=== PATIENT | female | born 1935 | race Caucasian/White ===

== ENCOUNTER 2019-09-17 16:43 | Observation (INO) | payer MEDICARE, BC, SELFPAY ==
--- NOTE | 2019-09-17 17:01 | ED.GENADULT ---
HPI - General Adult General Chief complaint: Unspecified Stated complaint: Doctor Check Time Seen by Provider: 09/17/19 17:01 Source: patient and family () Mode of arrival: ambulatory Limitations: dementia History of Present Illness HPI narrative: An 84 y/o female presents to the ED for placement to a respite care facility due to her PMHx of dementia. Pt is here with her who was seen for a separate illness. Pt's is her primary caregiver and he is unable to care for her at this time because he is being admitted to the hospital. Pt lives at home with her . Pt and her have 2 sons a 1 daughter, however their eldest son committed suicide. Pt's other son lives in [place] and her daughter lives in [place]. Pt thinks she is at [facility] in [place]. Per , pt uses eye drops for glaucoma but is unsure what other medications she takes. Pt has not taken any of her medications today. Pt states she has been eating and drinking okay. Pt had a banana and Pepsi in the ED. Pt is able to ambulate with her walker. She denies any current pain in the ED bed. A complete HPI is limited due to the pt's PMHx of dementia. Related Data Home Medications Medication Instructions Recorded Confirmed atorvastatin 09/17/19 donepezil mg 09/17/19 fluoxetine [Prozac] 80 mg PO DAILY 09/17/19 latanoprost 09/17/19 omeprazole 09/17/19 Allergies Allergy/AdvReac Type Severity Reaction Status Date / Time No Known Allergies Allergy Verified 09/17/19 17:01 Review of Systems Review of Systems: Narrative: A complete ROS is limited due to the pt's PMHx of dementia. Constitutional: Comments: Denies: any current pain in the ED bed PMFSH Past Medical History Medical History Arthritis Dementia Depression GERD (gastroesophageal reflux disease) HLD (hyperlipidemia) Osteoporosis Short-term memory loss Sinus problem Stress fracture Ulcer UTI (urinary tract infection) Surgical History Surgical History H/O bilateral cataract extraction H/O dilation and curettage H/O Spinal surgery H/O: hysterectomy History of bladder suspension procedure History of cholecystectomy History of tonsillectomy History of total knee arthroplasty bilateral Social History Social History Smoking status: Former smoker Comments No PCP on file. Exam Narrative: Exam Narrative: GENERAL: Well-appearing, well-nourished, and in no acute distress. HEAD: Normocephalic, atraumatic EYES: PERRLA and EOMI, conjunctiva clear without discharge EARS: TM's clear bilaterally without erythema or dullness NOSE: Nares clear, no rhinorrhea or epistaxis THROAT:Mucous membranes moist, Oropharynx normal without erythema, exudate, peritonsillar swelling or fluctuance NECK: Supple, without lymphadenopathy or mass RESPIRATORY: No respiratory distress, Airway patent, Respirations non-labored, Clear to auscultation without rales, rhonchi or wheeze HEART: Regular rate and rhythm. No murmur heard. Normal peripheral pulses. ABDOMEN: Soft, nontender, nondistended, normal active bowel sounds. No masses. No rebound or guarding, No organomegaly. EXTREMITIES: No edema, normal strength with full range of motion. SKIN: Warm, dry, normal color without rash NEURO: Alert and oriented to self. CN 2-12 grossly intact. No focal deficits. Dementia, able to ambulate using her personal walker with steady gait PSYCH: Normal mood and affect. Course Course Emergency Course: This patient came to ER with who is a patient. Her had to be admitted to hospital and patient has dementia . She is unable to go home on her own due to her dementia. Care coordination arranged for patient to get REspite care bed at [facility] but she was unable to go tonight due to [facility] did not have a sitter available
--- NOTE | 2019-09-17 17:01 | PCCCNOTE ---
Arrangements made to go to respite care via EMS this evening
[2019-09-17 17:35] LABS: Basophils Percent Auto 0.3 % (0.2-1.2); Eosinophils Absolute Auto 0.1 K/mm3 (0-0.3); Eosinophils Percent Auto 0.9 % (0-4.4); Hematocrit 46.3 % (37.0-47.0); Hemoglobin 14.5 g/dL (12.0-15.0); Immature Granulocyte Absolute 0.03 K/mm3 (0.00-0.031); Immature Granulocyte Percent A 0.5 % (0-0.5); Lymphocytes Absolute Auto 1.08 K/mm3 (0.9-3.2); Lymphocytes Percent Auto 16.3 % (18.3-44.2); Mean Corpuscular HGB Conc 31.3 g/dl (32-36); Mean Corpuscular Hemoglobin 31.2 pg (26-34); Mean Corpuscular Volume 99.6 fl (80-100); Mean Platelet Volume 10.6 fl (7.4-10.4); Monocytes Absolute Auto 0.4 K/mm3 (0.1-0.6); Monocytes Percent Auto 6.6 % (2.6-8.5); Neutrophils Percent Auto 75.4 % (45.5-73.1); Platelet Count Result 184 k/mm3 (150-375); Red Blood Count 4.65 M/mm3 (4.2-5.4); Red Cell Distribution Width 13.3 % (11.5-14.5); White Blood Count 6.6 K/mm3 (4.5-10.0)
[2019-09-17 17:39] VITALS: BP 105/87; PULSE 89; RESP 18; TEMP 37.5; O2SAT 100
[2019-09-17 17:46] LABS: Alanine Aminotransferase 25 U/L (4-35); Albumin Level 4.6 g/dL (3.5-5.1); Alkaline Phosphatase 98 U/L (38-126); Aspartate Amino Transferase 35 U/L (14-36); Bilirubin,Total 0.8 mg/dL (0.2-1.3); Blood Urea Nitrogen 28 mg/dL (7-17); Calcium 9.6 mg/dL (8.4-10.2); Carbon Dioxide 23 mmol/L (22-30); Chloride 100 mmol/L (98-107); Estimated Glomerular Filt Rate 53; Glucose 246 mg/dL (65-105); Potassium 4.3 mmol/L (3.4-5.0); Sodium 141 mmol/L (137-145)
--- NOTE | 2019-09-17 18:09 | PC.NURSE ---
Attempted to have patient provided urine sample but she voided in her diaper.
--- NOTE | 2019-09-17 18:24 | PC.NURSE ---
Per , Patient weighs 144 lbs and is 5'4 tall.
--- NOTE | 2019-09-17 18:33 | PC.NURSE ---
Joe is with patient at this time.
--- NOTE | 2019-09-17 19:28 | PC.NURSE ---
Faxed info to [facility] at [phone], followed up with phone call at [phone]. [facility] will look over information and call us back.
--- NOTE | 2019-09-17 22:03 | PM.IMHP ---
H&P: HPI History of Present Illness Chief complaint: Dementia Narrative: This is a demented 84 year old female who presented to the hospital today with her as he was being seen in the ER. The patient's takes care of her and they live alone. Her children live out of state. While the pateint's was being seen in the ER, the patient has needed a sitter as she has been wandering around in the ER. At one point she came into her husbands room and stated that she didn't know her . We have been asked to admit the patient to the hospital overnight as her is being admitted and the patient is not safe to go home alone due to her dementia. The patient denies any symptoms tonight and denies having and recent urinary symptoms. Her tells me that she is on medications but he can't remember the names of them. No other complaints. Review of Systems Review of Systems: All systems reviewed & are unremarkable except as noted in HPI and below PMFSH Past Medical History Medical History Arthritis Dementia Depression GERD (gastroesophageal reflux disease) HLD (hyperlipidemia) Osteoporosis Short-term memory loss Sinus problem Stress fracture Ulcer UTI (urinary tract infection) Surgical History Surgical History H/O bilateral cataract extraction H/O dilation and curettage H/O Spinal surgery H/O: hysterectomy History of bladder suspension procedure History of cholecystectomy History of tonsillectomy History of total knee arthroplasty bilateral Social History Social History Smoking status: Former smoker Alcohol intake: never Substance use: never Gender identity (if verbalized by the patient): Female Spiritual care concerns: No Agree to blood products: Yes Meds Home Medications and Allergies Home Medications Medication Instructions Recorded Confirmed Type atorvastatin 40 mg PO DAILY 09/17/19 09/17/19 History donepezil 10 mg PO DAILY 09/17/19 09/17/19 History fluoxetine [Prozac] 80 mg PO DAILY 09/17/19 09/17/19 History latanoprost 1 drp OPHTHALMIC (EYE) DAILY 09/17/19 09/17/19 History omeprazole 20 mg PO QID 09/17/19 09/17/19 History Allergies Allergy/AdvReac Type Severity Reaction Status Date / Time No Known Allergies Allergy Verified 09/17/19 17:01 Vital Signs Vital Signs - 24 hr 09/17/19 17:39 Temperature 37.5 C Pulse Rate 89 Respiratory Rate 18 Blood Pressure 105/87 Pulse Oximetry 100 Exam Const: General: cooperative, no acute distress, alert and awake Nutritional Appearance: well nourished Orientation/consciousness: oriented to person and oriented to place HENMT: Head: normal to inspection General nose exam: Normal external nose present Face and sinus: normal facial exam Mouth: Yes Normal oral and palatal mucosa present and Yes oropharynx normal Eyes: Pupils: Equal, round and reactive pupils present EOM: EOMs intact bilaterally Neck: Neck: supple and no JVD Thyroid: thyroid normal Lymphatic: lymphadenopathy not noted Resp: Effort & Inspection: normal respiratory effort Auscultation: clear to auscultation bilaterally Cardio: Rate: regular rate Rhythm: regular rhythm Heart sounds: no murmurs GI: Inspection: normal to inspection Auscultation: normal bowel sounds Skin: General skin exam: normal color and no rashes or lesions noted Neuro: General: oriented to person and oriented to place Cranial nerves: Yes CN's II-XII intact bilaterally and Yes Equal, round and reactive pupils present Speech: normal speech Motor exam (neuro): 5/5 motor strength present throughout Sensory Exam: normal sensation Extrem: General: normal to inspection and no edema Psych: Mental Status: mental status grossly normal Affect: normal affect H&P: Results Labs Labs: Short CBC 09/17
[2019-09-17 22:04] VITALS: BP 130/54; PULSE 87; RESP 16; TEMP 36.9; O2SAT 98
[2019-09-17 22:25] VITALS: BP 149/84; PULSE 79; RESP 18; TEMP 36.3; O2SAT 100; BMI 21.4
[2019-09-18 06:00] VITALS: BP 127/61; PULSE 71; RESP 18; TEMP 36.5; O2SAT 98
[2019-09-18 06:30] LABS: Basophils Percent Auto 0.6 % (0.2-1.2); Eosinophils Absolute Auto 0.1 K/mm3 (0-0.3); Eosinophils Percent Auto 2.2 % (0-4.4); Hematocrit 41.3 % (37.0-47.0); Hemoglobin 13.2 g/dL (12.0-15.0); Immature Granulocyte Absolute 0.04 K/mm3 (0.00-0.031); Immature Granulocyte Percent A 0.7 % (0-0.5); Lymphocytes Absolute Auto 1.38 K/mm3 (0.9-3.2); Lymphocytes Percent Auto 25.6 % (18.3-44.2); Mean Corpuscular Hemoglobin 31.3 pg (26-34); Mean Corpuscular Volume 97.9 fl (80-100); Mean Platelet Volume 10.9 fl (7.4-10.4); Monocytes Absolute Auto 0.6 K/mm3 (0.1-0.6); Monocytes Percent Auto 10.6 % (2.6-8.5); Neutrophils Absolute Auto 3.3 K/mm3 (1.3-6.7); Neutrophils Percent Auto 60.3 % (45.5-73.1); Platelet Count Result 162 k/mm3 (150-375); Red Blood Count 4.22 M/mm3 (4.2-5.4); Red Cell Distribution Width 13.2 % (11.5-14.5); White Blood Count 5.4 K/mm3 (4.5-10.0)
[2019-09-18 06:40] LABS: Blood Urea Nitrogen 22 mg/dL (7-17); Calcium 9.3 mg/dL (8.4-10.2); Carbon Dioxide 23 mmol/L (22-30); Chloride 103 mmol/L (98-107); Estimated CRCL calculation 29 ml/min; Estimated Glomerular Filt Rate 60; Glucose 87 mg/dL (65-105); Potassium 4.1 mmol/L (3.4-5.0); Sodium 138 mmol/L (137-145)
[2019-09-18 06:53] LABS: Hemoglobin A1C 5.2 % (<5.7)
[2019-09-18 07:41] LABS: Glucose Point of Care 98 (65-105)
[2019-09-18 09:14] VITALS: BP 108/59; PULSE 95; RESP 18; O2SAT 100
[2019-09-18] MEDS: ATORVASTATIN 40 MG TABLET PO (11:02)
[2019-09-18] MEDS: DONEPEZIL HCL 10 MG TABLET PO (11:02)
[2019-09-18] MEDS: PANTOPRAZOLE 40 MG TABLET PO (11:04)
[2019-09-18] MEDS: FLUOXETINE HCL 20 MG CAP 80 MG PO (11:28)
[2019-09-18 14:00] VITALS: BP 105/85; PULSE 87; RESP 18; TEMP 36.6; O2SAT 100
[2019-09-18 14:16] LABS: Glucose Point of Care 115 (65-105)
--- NOTE | 2019-09-18 16:56 | PM.DS ---
DS: Diagnosis Admitting Diagnosis Admitting Diagnosis: Unspecified dementia without behavioral disturbance Discharge Diagnosis (1) Dementia: Qualifiers: Dementia behavioral disturbance: without behavioral disturbance Dementia type: unspecified type Qualified Code(s): F03.90 - Unspecified dementia without behavioral disturbance Code(s): F03.90 - Unspecified dementia without behavioral disturbance Status: Acute Assessment and Plan: Admitted for observation. No acute issues overnight Continue donepezil. Patient's son to take patient home after discharge. He has a sister who will also aid in her care. They are in the process of making long-term arrangements for a NH (2) Abnormal glucose: Code(s): R73.09 - Other abnormal glucose Status: Acute Assessment and Plan: A1c 5.7. Accuchecks, SSI Coverage. Hypoglycemic protocol during stay Follow up with PCP as outpatient (3) GERD (gastroesophageal reflux disease): Qualifiers: Esophagitis presence: esophagitis presence not specified Qualified Code(s): K21.9 - Gastro-esophageal reflux disease without esophagitis Code(s): K21.9 - Gastro-esophageal reflux disease without esophagitis Status: Chronic Assessment and Plan: Continue omperazole. (4) Depression: Qualifiers: Depression Type: other depression Qualified Code(s): F32.89 - Other specified depressive episodes Code(s): F32.9 - Major depressive disorder, single episode, unspecified Status: Chronic Assessment and Plan: Continue fluoxetine. (5) HLD (hyperlipidemia): Qualifiers: Hyperlipidemia type: unspecified Qualified Code(s): E78.5 - Hyperlipidemia, unspecified Code(s): E78.5 - Hyperlipidemia, unspecified Status: Chronic Assessment and Plan: Continue atorvastatin. DS: Summary Hospital Course Reason for hospitalization: Dementia; observation as admitted to hospital without another family member to care for patient while patient was admitted Hospital Course: Patient is a 84 yo F with history of dementia who presented to the hospital with her as he was being seen in the ER on 09/17. Patient is cared for by the as her children live out of state. Patient was noted to be confused and needing a sitter while in the ER while her was being cared for. It was deemed unsafe to have patient being discharge home alone; her son was contacted who drove from [place] to clam picker the patient. There was no other medical indication for admission other than baseline dementia. Please see H&P for further details. Presenting VS: BP 105/87, HR 89, RR 18, temp 99.5, sat 100% RA Presenting Pertinent labs: CBC, CMP unremarkable Micro: None Imaging: none ECG: none Patient was admitted to the hospitalist service for further observation while patient's son drove from [place] to care for patient after discharge. Patient's stay was uncomplicated and patient's son arrived to the hospital on afternoon of 09/18 to take patient home. Patient was hemodynamically stable and in okay condition for discharge. Son and Daughter, who was driving from out of state as well, were planning on making arrangements for further care as outpatient. Status at Discharge Overall status at discharge: patient is progressing back to baseline Time Spent with Patient Time attestation: Total time spent providing and/or coordinating discharge services: 35 minutes Time spent: Greater than 30 minutes Exam Narrative: Exam Narrative: Patient lying supine in bed at time of visit. Son is at beside visiting Const: General: cooperative, comfortable, no acute distress, alert and awake Nutritional Appearance: well nourished Orientation/
[2019-09-18 17:18] LABS: Glucose Point of Care 145 (65-105)
--- NOTE | 2019-09-18 18:30 | PC.NURSE ---
Patient discharged @1745. Patient had no IV access. Patient transported home via wheel chair and POV by the son of the patient.
== END 2019-09-18 17:45 | disposition home or self-care (01) ==
LOC: ANHED 21:13 → ANH3MEDSUR 21:18
PROVIDERS: Physician Assistant; Admitting Provider Family Medicine; Emergency Provider General Practice; Visit Provider Family Medicine
DX: F03.90 Unspecified dementia, unspecified severity, without behavioral disturbance, psychotic disturbance, mood disturbance, and anxiety (principal); Z74.2 Need for assistance at home and no other household member able to render care; R73.09 Other abnormal glucose; E78.5 Hyperlipidemia, unspecified; F32.9 Major depressive disorder, single episode, unspecified; K21.9 Gastro-esophageal reflux disease without esophagitis; M81.0 Age-related osteoporosis without current pathological fracture; M19.90 Unspecified osteoarthritis, unspecified site; Z87.891 Personal history of nicotine dependence; Z96.653 Presence of artificial knee joint, bilateral
CPT/HCPCS: 36415; 80048; 80053; 83036; 85025; 99285; A9270; G0378

== ENCOUNTER 2019-10-06 18:29 | Emergency (ER) | payer MEDICARE, BC, SELFPAY ==
--- NOTE | ~2019-10-06 | CT_ITS ---
EXAMINATION: CT brain wo con EXAM DATE: 10/06/2019 19:06 INDICATION: Fall, head injury. TECHNIQUE: Spiral CT of the head was performed without contrast. Axial, coronal and sagittal images were reviewed. The dose-length product (DLP) for this examination was 605.33 mGy-cm. The exposure w as tailored according to patient size, and iterative reconstruction (ASIR) was used as additional dos e reduction technique. Comparison is made to prior examination from 01/14/2019. FINDINGS: There is no acute intraparenchymal hemorrhage. No evidence of intraparenchymal brain mass lesion. No evidence of acute infarction. Please note that initial head CT has limited sensitivity f or small or acute infarctions. 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 There is moderate pe riventricular and subcortical hypodensity, nonspecific but probably related to small vessel ischemic disease. There is moderate prominence of the sulci and ventricles related to cerebral atrophy. Th ere is intracranial carotid arteriosclerosis. There are no extra-axial collections. There is no mas s effect or midline shift. Patient has had bilateral ocular lens surgery. Soft tissue is unremarkab le. The visualized sinuses and mastoid air cells are well aerated. 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 There is no significant interval change. IMPRESSION: 1. No acute intracranial findings. 2. Chronic age related findings. 3. 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 Reviewed, dictated and finalized at location A. RATIONS TAILOR
--- NOTE | ~2019-10-06 | CT_ITS ---
EXAMINATION: CT cervical spine [facility] EXAM DATE: 10/06/2019 19:06 INDICATION: Fall, head injury. TECHNIQUE: Spiral CT of the cervical spine was performed without contrast. Axial images were reviewe d. Coronal and sagittal reformatted images were also reviewed. The dose-length product (DLP) for thi s examination was 87.13 mGy-cm. The exposure was tailored according to patient size (auto mA exposur e control), and iterative reconstruction (ASIR) was used as additional dose reduction technique. Comp demetriceson is made to prior examination from 01/14/2019. FINDINGS: Multiple midcervical laminectomies. Advanced cervical disc disease. There is no evidence of acute cervical fracture. The odontoid process is intact. Pre-dens space is normal. Prevertebral s oft tissue is normal. There are no soft tissue abnormalities identified. There is no disc space wid ening or traumatic vertebral body subluxation suspected. Advanced cervical arthropathy. A detailed level by level evaluation of spondylosis can be added as addendum if requested. IMPRESSION: 1. No acute cervical fracture. 2. Cervical spondylosis. Reviewed, dictated and finalized at location A. AR SUPERVISOR
--- NOTE | 2019-10-06 18:29 | ED.FALL ---
HPI - Fall General Chief Complaint: Fall Stated Complaint: fall Time Seen by Provider: 10/06/19 18:30 Source: patient Mode of arrival: ambulatory Limitations: no limitations History of Present Illness HPI Narrative: A 82 y/o female pt presents to the ED, via EMS from her assisted living facility, with c/o witnessed ground level fall outside of her bedroom at her nursing facility prior to EMS arrival. EMS states that pt has a 1 inch laceration to the back of her head and is complaining of pain in the back of her neck and head. EMS reports that the pt was only down for a couple of minutes and had no LOC. They note that the pt was groggy and weak when the staff at the facility tried to get her off the floor, so they decided to call EMS. Pt states her pain is mild and notes feeling nauseous, and having a cough, but denies pain to her back, shoulders, chest or hips. She denies any recent illness. Pt has a PMHx of Dementia. Pt notes an allergy to Penicillin. A complete HPI is limited d/t pt having dementia. MD complaint: fall Onset (ago): minute(s) Fall from: standing Fall witnessed: yes, by living facility staff Place fall occurred: [facility] Loss of consciousness: none Prolonged down time: minute(s) Location of injury: head (1 inch laceration) Severity: mild Associated symptoms (after fall): neck pain, weakness and other (pain to the back of her head, nausea) Related Data Home Medications Medication Instructions Recorded Confirmed atorvastatin 40 mg PO DAILY 09/17/19 09/17/19 donepezil 10 mg PO DAILY 09/17/19 09/17/19 fluoxetine [Prozac] 80 mg PO DAILY 09/17/19 09/17/19 latanoprost 1 drp OPHTHALMIC (EYE) DAILY 09/17/19 09/17/19 omeprazole 20 mg PO QID 09/17/19 09/17/19 Allergies Allergy/AdvReac Type Severity Reaction Status Date / Time No Known Allergies Allergy Verified 09/17/19 17:01 Review of Systems Review of Systems: Narrative: A complete ROS is limited d/t pt having dementia. Constitutional: Constitutional: Reports weakness and Reports other (pain to back of head) Respiratory: Respiratory: Reports cough Gastrointestinal: Gastrointestinal: Reports nausea Musculoskeletal: Musculoskeletal: Denies back pain, Reports neck pain and Denies other (Pain; shoulder, chest, hips) Integumentary/Breasts: Skin/Breast: Reports other (1 inch laceration to back of head) [facility] Past Medical History Medical History Arthritis Dementia Depression GERD (gastroesophageal reflux disease) HLD (hyperlipidemia) Osteoporosis Short-term memory loss Sinus problem Stress fracture Ulcer UTI (urinary tract infection) Surgical History Surgical History H/O bilateral cataract extraction H/O dilation and curettage H/O Spinal surgery H/O: hysterectomy History of bladder suspension procedure History of cholecystectomy History of tonsillectomy History of total knee arthroplasty bilateral Social History Social History (Updated 10/06/19 @ 18:49 by Diego [employer]) Smoking status: Former smoker Alcohol intake: never Substance use: never Living arrangements: assisted living Gender identity (if verbalized by the patient): Female Spiritual care concerns: No Agree to blood products: Yes Exam Const: General: no acute distress Other: frail, elderly, A&Ox2 HENMT: Other: 1 cm posterior scalp laceration Eyes: Conjunctivae: conjunctivae normal Pupils: Equal, round and reactive pupils present EOM: EOMs intact bilaterally Neck: Other: collar in place Resp: Effort & Inspection: normal respiratory effort Auscultation: clear to auscultation bilaterally Cardio: Rate: regular rate Rhythm: regular rhythm GI: Other: NTND Skin: General skin exam: normal color Neuro: General: moves all extremities and no focal motor deficits Speech: normal speech Extrem: General: no edema Course Vital
[2019-10-06 18:39] VITALS: BP 121/68; PULSE 72; RESP 16; TEMP 36.4; O2SAT 99
[2019-10-06 18:42] VITALS: RESP 14; O2SAT 99
--- NOTE | 2019-10-06 20:49 | PC.NURSE ---
Called [facility] to transport patient. ETA [phone]
--- NOTE | 2019-10-06 21:40 | PC.NURSE ---
Called [facility] at [phone] to request transport. [facility] here at [phone]. Cancel [facility] at [phone].
[2019-10-06 21:55] VITALS: BP 120/76; PULSE 75; RESP 18; O2SAT 98
== END 2019-10-06 21:50 ==
PROVIDERS: Emergency Provider Emergency Medicine
DX: S01.01XA Laceration without foreign body of scalp, initial encounter (principal); S09.90XA Unspecified injury of head, initial encounter; M47.812 Spondylosis without myelopathy or radiculopathy, cervical region; M19.90 Unspecified osteoarthritis, unspecified site; F03.90 Unspecified dementia, unspecified severity, without behavioral disturbance, psychotic disturbance, mood disturbance, and anxiety; F32.9 Major depressive disorder, single episode, unspecified; K21.9 Gastro-esophageal reflux disease without esophagitis; W01.0XXA Fall on same level from slipping, tripping and stumbling without subsequent striking against object, initial encounter
CPT/HCPCS: 12001; 70450; 72125; 99284

== ENCOUNTER 2019-11-07 20:58 | Emergency (ER) | payer MEDICARE, BC, SELFPAY ==
--- NOTE | ~2019-11-07 | XR_ITS ---
EXAMINATION: XR chest 2V EXAM DATE: 11/07/2019 21:28 INDICATION: Generalized weakness, fall. Head injury. TECHNIQUE: Frontal and lateral projections of the chest obtained and reviewed. Comparison is made to prior examination from 01/14/2019 FINDINGS: There is right midlung zone granuloma. The lungs are otherwise clear. There are no pleural effusions. The cardiomediastinal silhouette is within normal limits. There is no pneumothorax susp ected. The bones are osteopenic. There are bony degenerative changes. There is aortic arterial scle rosis. There is colonic interposition. IMPRESSION: No acute cardiopulmonary findings. Reviewed, dictated and finalized at location G.
--- NOTE | ~2019-11-07 | CT_ITS ---
EXAMINATION: CT brain wo con, CT cervical spine wo con EXAM DATE: 11/07/2019 21:30 INDICATION: Fall, head injury. TECHNIQUE: Spiral CT of the head was performed without contrast. Axial, coronal and sagittal images were reviewed. Spiral CT of the cervical spine was performed without contrast. Axial images were rev iewed. Coronal and sagittal reformatted images were also reviewed. The dose-length product (DLP) fo r this examination was 605.33 (accession [id number]), 75.75 (accession [id number]) mGy-cm. T he exposure was tailored according to patient size, and iterative reconstruction (ASIR) was used as a dditional dose reduction technique. Comparison is made to prior examination from 10/06/2019. 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 There is no acute intraparenchymal hemorrhag e. No evidence of intraparenchymal brain mass lesion. No evidence of acute infarction. There is mil d to moderate periventricular and subcortical hypodensity, nonspecific but probably related to small vessel ischemic disease. There is moderate prominence of the sulci and ventricles related to cerebr al atrophy. There is intracranial carotid arteriosclerosis. There is no mass effect or midline sh ift. There is no obstructive hydrocephalus suspected. There are no extra-axial collections. There a re no acute calvarial fractures. The orbits are unremarkable. Soft tissue is unremarkable. The vis ualized sinuses and mastoid air cells are well aerated. CERVICAL CT: Congenitally incomplete posterior fusion of C1. There is no evidence of acute cervical f racture. The odontoid process is intact. Pre-dens space is normal. Prevertebral soft tissue is nor mal. There are no soft tissue abnormalities identified. There is no disc space widening or traumati c vertebral body subluxation suspected. There is advanced cervical spondylosis. There are laminectom y C3 C3-6. Some apical emphysema. A detailed level by level evaluation of spondylosis can be added as addendum if requested. There is no significant interval change. IMPRESSION: 1. No acute intracranial or cervical findings. 2. 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 3. Chronic intracranial age-related findings. 4. Advanced cervical spondylosis. Reviewed, dictated and finalized at location G. IMPRESSION: 1. No acute intracranial or cervical findings. 2. 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 3. Chronic intracranial age-related findings. 4. Advanced cervical spondylosis.
[2019-11-07 20:51] VITALS: BP 148/85; PULSE 75; TEMP 37.4; O2SAT 98
--- NOTE | 2019-11-07 20:54 | ED.FALL ---
HPI - Fall General Chief Complaint: Fall Stated Complaint: weakness/ fall hematoma to head Source: patient and RN notes reviewed Mode of arrival: EMS Limitations: other (poor historian) History of Present Illness HPI Narrative: An 84 y/o female pt presents to the ED, via EMS, from [facility], with c/o weakness x a few days and witnessed fall that occurred prior to arrival to the ED. Per ED RN at bedside, Nursing Facility staff and EMS witnessed the pt fall and denies pt having LOC, but reports pt hitting her head and a golf-size hematoma to the back of her head. Pt notes weakness x the last few days, but denies vision changes, CP, N/V/D, or ABD pain. No fever, chills or coughs. A complete HPI is limited d/t pt being a poor historian due to dementia. MD complaint: fall Onset (ago): minute(s) Fall witnessed: yes, by living facility staff Place fall occurred: [facility] Loss of consciousness: none Prolonged down time: no Context: other (weakness x a few days) Related Data Home Medications Medication Instructions Recorded Confirmed atorvastatin 40 mg PO DAILY 09/17/19 09/17/19 donepezil 10 mg PO DAILY 09/17/19 09/17/19 fluoxetine [Prozac] 80 mg PO DAILY 09/17/19 09/17/19 latanoprost 1 drp OPHTHALMIC (EYE) DAILY 09/17/19 09/17/19 omeprazole 20 mg PO QID 09/17/19 09/17/19 Allergies Allergy/AdvReac Type Severity Reaction Status Date / Time No Known Allergies Allergy Verified 09/17/19 17:01 Review of Systems Review of Systems: Narrative: A complete ROS is limited d/t to pt being a poor historian. Constitutional: Constitutional: Denies chills, Denies excessive sweating, Denies fever(s) and Reports weakness (x a few days) Eyes: Eyes: Denies change in vision, Denies eye discharge and Denies other (redness) ENT: Denies otalgia, Denies sore throat and Denies other (rhinorrhea, congestion) Cardiovascular: Cardiovascular: Denies chest pain, Denies pedal edema and Denies palpitations Respiratory: Respiratory: Denies cough and Denies dyspnea Gastrointestinal: Gastrointestinal: Denies abdominal pain, Denies diarrhea, Denies nausea and Denies vomiting Genitourinary: Genitourinary: Denies dysuria and Denies other (hematuria) Musculoskeletal: Musculoskeletal: Denies back pain, Denies myalgias and Denies arthralgias Neurologic: Denies numbness and Denies other (headaches, LOC) Psychiatric: Psychiatric: Denies anxiety and Denies depression [facility] Social History Social History (Updated 11/07/19 @ 22:21 by Diego Patel, [facility]) Smoking status: Former smoker Alcohol intake: never Substance use: never Living arrangements: [facility] Gender identity (if verbalized by the patient): Female Spiritual care concerns: No Agree to blood products: Yes Exam Narrative: Exam Narrative: GENERAL: Awake, alert, conversant, thin, frail HEAD: Normocephalic, small hematoma to left parietal lobe, no laceration or ecchymoses ENT: Nares patent. Mucous membranes dry NECK: Full ROM. No cervical midline tenderness. No stepoffs or deformities. CHEST: No respiratory distress, no tachypnea HEART: Regular rate ABDOMEN: Non-distended, non-tender EXTREMITIES: Normal ROM, No edema, no tenderness to bilateral hips or pelvis, pelvis is stable, no shortening or rotation to bilateral lower extremities. DP PUlses 2+. No deformity or injuries to knees or ankles. SKIN: warm, dry, no rash, abrasion to rt hand, bruising to rt forearm NEURO: No focal deficits, Alert and oriented x 2. Moving all extremities spontaneously. No facial droop. Course Course Emergency Course: Patient presented for evaluation of a ground-level fall. At the time of initial assessment, ABCs are intact and vital signs are stable. Patient is neurologically intact at baseline. No focal neuro deficits. She is quite thin and frail appearing, otherwise pt is pleasant, awake and alert. Pelvis is stable, no sign of hip injury based on exam. Pt with small he
--- NOTE | 2019-11-07 21:01 | ECG_ITS ---
Measurements Intervals [place] Rate: 67 P: 64 RI: 138 QRS: -10 QRSD: 81 T: 66 QT: 431 QTc: 457 Interpretive Statements SINUS RHYTHM BASELINE ARTIFACT- I, II, V4 NORMAL ECG Electronically Signed On 11-08-2019 7:13:19 CDT by Kyrie Diego D.O.
--- NOTE | 2019-11-07 21:22 | PC.NURSE ---
Patient in radiology at this time.
[2019-11-07] MEDS: SODIUM CHLORIDE 0.9% IV 500 ML 999 ML IV CONT (21:41)
[2019-11-07 21:49] LABS: Basophils Percent Auto 0.5 % (0.2-1.2); Eosinophils Percent Auto 0.3 % (0-4.4); Hematocrit 40.9 % (37.0-47.0); Hemoglobin 13.6 g/dL (12.0-15.0); Immature Granulocyte Absolute 0.02 K/mm3 (0.00-0.031); Immature Granulocyte Percent A 0.3 % (0-0.5); Immature Platelet Fraction Pct 4.7 % (0.9-11.2); Lymphocytes Percent Auto 12.7 % (18.3-44.2); Mean Corpuscular HGB Conc 33.3 g/dl (32-36); Mean Corpuscular Volume 90.3 fl (80-100); Mean Platelet Volume 11.1 fl (7.4-10.4); Monocytes Absolute Auto 0.5 K/mm3 (0.1-0.6); Monocytes Percent Auto 8.6 % (2.6-8.5); Neutrophils Absolute Auto 4.9 K/mm3 (1.3-6.7); Neutrophils Percent Auto 77.6 % (45.5-73.1); Platelet Count Result 134 k/mm3 (150-375); Red Blood Count 4.53 M/mm3 (4.2-5.4); Red Cell Distribution Width 12.8 % (11.5-14.5); White Blood Count 6.3 K/mm3 (4.5-10.0)
[2019-11-07 21:57] LABS: Partial Thromboplastin Time 23.4 SECONDS (22.3-36.8); Prothrombin Time 12.5 Seconds (11.1-14.7)
[2019-11-07 21:59] VITALS: BP 146/88; PULSE 64; RESP 21; O2SAT 97
[2019-11-07 22:05] LABS: Add Urine Microscopic? YES; Appearance Urine Cloudy (Clear); Bilirubin Urine Negative (Negative); Blood Urine Negative (Negative); Color Urine Yellow (Yellow); Glucose Urine UA Negative (Negative); Ketones Urine Negative (Negative); Leukocyte Esterase Ur 2+ LEU/UL (Negative); Mucus Urine Heavy /lpf; Nitrate Urine Negative (Negative); Protein Urine 2+ mg/dL (Negative); Specific Grav Ur 1.023 (1.001-1.035); Squamous Epithelial Cell Urine Many /hpf (Few); WBC Clumps Urine Present /HPF; WBC Urine >75 /hpf
[2019-11-07 22:06] LABS: Blood Urea Nitrogen 13 mg/dL (7-17); Calcium 9.4 mg/dL (8.4-10.2); Carbon Dioxide 26 mmol/L (22-30); Chloride 105 mmol/L (98-107); Estimated Glomerular Filt Rate 60; Glucose 110 mg/dL (65-105); Potassium 2.8 mmol/L (3.4-5.0); Sodium 138 mmol/L (137-145)
[2019-11-07] MEDS: CEPHALEXIN 500 MG CAPSULE PO (22:17)
[2019-11-07] MEDS: POTASSIUM CHLORIDE 20 MEQ PACKET (FOR LIQUID) 80 MEQ PO (22:17)
[2019-11-07 23:05] VITALS: BP 156/78; PULSE 72; RESP 21; O2SAT 97
[2019-11-07 23:15] VITALS: BP 156/78; PULSE 88; RESP 18; TEMP 37.3; O2SAT 97
--- NOTE | 2019-11-07 23:15 | PC.NURSE ---
Addendum entered by Bouchra Yancey 11/08/19 02:33: Called [facility] for status...approximately 45 minutes. They have had 2 ambulances at our door, that left due to 911 calls. Original Note: Called [facility] to transport back to facility....ETA 45 minutes.
--- NOTE | 2019-11-08 01:08 | PC.NURSE ---
Patient refusing repeat VS at this time. Patient resting on stretcher watching television awaiting EMS arrival to transport her back to the [place]. Call light within reach.
--- NOTE | 2019-11-08 02:37 | PC.NURSE ---
Patient continuously refusing repeat VS. Patient still waiting for EMS to arrive to transport her back to the [place]. Patient resting on the stretcher at this time. Call light within reach.
== END 2019-11-08 03:11 ==
PROVIDERS: Emergency Provider Emergency Medicine
DX: N39.0 Urinary tract infection, site not specified (principal); E87.6 Hypokalemia; S00.93XA Contusion of unspecified part of head, initial encounter; Z87.891 Personal history of nicotine dependence; M47.812 Spondylosis without myelopathy or radiculopathy, cervical region; W19.XXXA Unspecified fall, initial encounter
CPT/HCPCS: 36415; 51701; 70450; 71046; 72125; 80048; 81001; 85025; 85055; 85610; 85730; 87086; 87088; 93005; 99284; A9270; J7040

== ENCOUNTER 2019-11-10 17:15 | Emergency (ER) | payer MEDICARE, BC, SELFPAY ==
--- NOTE | ~2019-11-10 | XR_ITS ---
XR pelvis 1-2V 11/10/2019 18:26 Indication: Status post fall. Pelvic pain. Altered mental status. Procedure: AP view of the pelvis Comparison: No prior studies for comparison. Findings: Pelvic rings are intact. Moderate lower lumbar spondylosis. No acute fracture or traumatic malalignment. No significant soft tissue abnormality. Impression: 1: No acute fracture. Reviewed, dictated and finalized at location A. Impression: 1: No acute fracture.
--- NOTE | ~2019-11-10 | XR_ITS ---
XR chest 1V portable 11/10/2019 18:26 Indication: Status post fall. Chest pain. Altered mental status. Procedure: AP portable chest Comparison: Comparison to multiple prior studies sequentially, with oldest reviewed study dated 01/15. Findings: There is right perihilar atelectasis. Heart size normal. No focal pneumonia, pulmonary erlinda a, pleural effusion or pneumothorax. No acute osseous abnormality. The lungs are hyperinflated which is consistent with, but not diagnostic of chronic obstructive pulmonary disease. Impression: 1: Right perihilar atelectasis. Reviewed, dictated and finalized at location A. Impression: 1: Right perihilar atelectasis.
[2019-11-10 17:17] VITALS: BP 131/82; PULSE 66; RESP 20; TEMP 36.7; O2SAT 98
[2019-11-10] MEDS: LACTATED RINGERS 1,000 ML 999 ML IV CONT (18:28)
[2019-11-10 18:45] LABS: Basophils Percent Auto 0.5 % (0.2-1.2); Eosinophils Percent Auto 0.7 % (0-4.4); Hematocrit 43.8 % (37.0-47.0); Hemoglobin 13.8 g/dL (12.0-15.0); Immature Granulocyte Absolute 0.02 K/mm3 (0.00-0.031); Immature Granulocyte Percent A 0.5 % (0-0.5); Immature Platelet Fraction Pct 4.4 % (0.9-11.2); Lymphocytes Absolute Auto 0.45 K/mm3 (0.9-3.2); Lymphocytes Percent Auto 10.3 % (18.3-44.2); Mean Corpuscular HGB Conc 31.5 g/dl (32-36); Mean Corpuscular Hemoglobin 29.1 pg (26-34); Mean Corpuscular Volume 92.4 fl (80-100); Mean Platelet Volume 11.2 fl (7.4-10.4); Monocytes Absolute Auto 0.3 K/mm3 (0.1-0.6); Monocytes Percent Auto 7.1 % (2.6-8.5); Neutrophils Absolute Auto 3.5 K/mm3 (1.3-6.7); Neutrophils Percent Auto 80.9 % (45.5-73.1); Platelet Count Result 109 k/mm3 (150-375); Red Blood Count 4.74 M/mm3 (4.2-5.4); Red Cell Distribution Width 13.2 % (11.5-14.5); White Blood Count 4.4 K/mm3 (4.5-10.0)
[2019-11-10 18:57] LABS: Blood Urea Nitrogen 14 mg/dL (7-17); Calcium 9.1 mg/dL (8.4-10.2); Carbon Dioxide 27 mmol/L (22-30); Chloride 108 mmol/L (98-107); Estimated CRCL calculation 27 ml/min; Estimated Glomerular Filt Rate 53; Glucose 104 mg/dL (65-105); Potassium 3.5 mmol/L (3.4-5.0); Sodium 142 mmol/L (137-145)
--- NOTE | 2019-11-10 19:06 | ED.FALL ---
HPI - Fall General Chief Complaint: Fall Stated Complaint: fall/hip pain Time Seen by Provider: 11/10/19 17:17 Source: patient and EMS History of Present Illness HPI Narrative: 84 f poor historian, doesn't recall what happened on the other hand is without complaints per ems there was concern re a l hip injury after a fall of some type which is not well described maybe, getting treated for uti @ [facility] but paperwork is not comprehensive does have comfort measures complaint: fall Onset (ago): hour(s) Fall from: other (unknown) Fall witnessed: yes, by living facility staff (unclear if witnessed) Place fall occurred: [facility] Loss of consciousness: none Related Data Home Medications Medication Instructions Recorded Confirmed atorvastatin 40 mg PO DAILY 09/17/19 09/17/19 donepezil 10 mg PO DAILY 09/17/19 09/17/19 fluoxetine [Prozac] 80 mg PO DAILY 09/17/19 09/17/19 latanoprost 1 drp OPHTHALMIC (EYE) DAILY 09/17/19 09/17/19 omeprazole 20 mg PO QID 09/17/19 09/17/19 Allergies Allergy/AdvReac Type Severity Reaction Status Date / Time No Known Allergies Allergy Verified 09/17/19 17:01 Review of Systems Review of Systems: All systems reviewed & are unremarkable except as noted in HPI and below ROS unobtainable: Yes unobtainable due to mental status (demented, no short term memory) PMFSH Past Medical History Medical History Arthritis Dementia Depression GERD (gastroesophageal reflux disease) HLD (hyperlipidemia) Osteoporosis Short-term memory loss Sinus problem Stress fracture Ulcer UTI (urinary tract infection) Surgical History Surgical History H/O bilateral cataract extraction H/O dilation and curettage H/O Spinal surgery H/O: hysterectomy History of bladder suspension procedure History of cholecystectomy History of tonsillectomy History of total knee arthroplasty bilateral Social History Social History Smoking status: Former smoker Alcohol intake: never Substance use: never Gender identity (if verbalized by the patient): Female Spiritual care concerns: No Agree to blood products: Yes Exam Narrative: Exam Narrative: frail, elderly Const: General: no acute distress and alert HENMT: Head: normal to inspection, no contusions and no hematomas Eyes: Conjunctivae: conjunctivae normal EOM: EOMs intact bilaterally Neck: Other: nontender Chest: Chest palpation & inspection: normal inspection of the chest Resp: Effort & Inspection: normal respiratory effort Auscultation: clear to auscultation bilaterally Cardio: Rate: regular rate Rhythm: regular rhythm GI: Other: soft/nt Back/Spine/Pelvis: Cervical Spine: No collar present Skin: Wounds: no wounds Neuro: General: moves all extremities Extrem: Other: B hips with good ROM, no deformity or shortening Psych: Other: poor memory Course Vital Signs Vital signs: Vital Signs Temperature 36.7 C 11/10/19 17:17 Pulse Rate 66 11/10/19 17:17 Respiratory Rate 20 11/10/19 17:17 Blood Pressure 131/82 11/10/19 17:17 Pulse Oximetry 98 11/10/19 17:17 Temperature 36.7 C 11/10/19 17:17 Pulse Rate 66 11/10/19 20:36 Respiratory Rate 20 11/10/19 17:17 Blood Pressure 144/76 H 11/10/19 20:36 Pulse Oximetry 98 11/10/19 17:17 MDM - Fall Lab Data Result diagrams: 11/10/19 18:35 11/10/19 18:35 Labs: Lab Results 11/10/19 11/10/19 11/10/19 Range/Units 18:35 18:35 19:07 WBC 4.4 L (4.5-10.0) K/mm3 RBC 4.74 (4.2-5.4) M/mm3 Hgb 13.8 (12.0-15.0) g/dL Hct 43.8 (37.0-47.0) % MCV 92.4 (80-100) fl MCH 29.1 (26-34) pg MCHC 31.5 L (32-36) g/dl RDW 13.2 (11.5-14.5) % Plt Count 109 L (150-375) k/mm3 MPV 11.2 H (7.4-10.4) fl Immature Gran %
[2019-11-10 19:17] LABS: Add Urine Microscopic? YES; Appearance Urine Cloudy (Clear); Bacteria Urine Trace /hpf; Bilirubin Urine Negative (Negative); Blood Urine 1+ (Negative); Color Urine Yellow (Yellow); Glucose Urine UA Negative (Negative); Ketones Urine Trace mg/dL (Negative); Leukocyte Esterase Ur 2+ LEU/UL (Negative); Mucus Urine Moderate /lpf; Nitrate Urine Negative (Negative); Protein Urine 2+ mg/dL (Negative); RBC Urine 51-75 /hpf (0-2); Specific Grav Ur 1.026 (1.001-1.035); Squamous Epithelial Cell Urine Many /hpf (Few); WBC Urine >75 /hpf
[2019-11-10 20:35] VITALS: BP 143/71; PULSE 65
[2019-11-10 20:36] VITALS: BP 144/76; PULSE 66
--- NOTE | 2019-11-10 21:22 | PC.NURSE ---
Addendum entered by Bouchra Yancey 11/10/19 21:44: Called [facility]...Declined, do not have the resources. Addendum entered by Bouchra Yancey 11/10/19 21:28: Called [facility]...Declined. Do not have the resources. Original Note: Called [facility] to transport back to facility...ETA [id number]. Called [facility] ... Declined. No truck available.
--- NOTE | 2019-11-10 22:34 | PC.NURSE ---
Called [facility] report given to nurse Pauline, who stated she would be leaving soon and have no on coming nurse to share report with. EMS ETA stated to be 0100.
--- NOTE | 2019-11-10 23:14 | PC.NURSE ---
Pt continues to call out the name Adrián loudly and fall back asleep with in minutes after.
[2019-11-11 00:40] VITALS: BP 161/60; PULSE 74; O2SAT 93
== END 2019-11-11 00:41 ==
PROVIDERS: Emergency Provider Emergency Medicine
DX: N39.0 Urinary tract infection, site not specified (principal); R29.6 Repeated falls; M19.90 Unspecified osteoarthritis, unspecified site; F03.90 Unspecified dementia, unspecified severity, without behavioral disturbance, psychotic disturbance, mood disturbance, and anxiety; F32.9 Major depressive disorder, single episode, unspecified; K21.9 Gastro-esophageal reflux disease without esophagitis; E78.5 Hyperlipidemia, unspecified; M81.0 Age-related osteoporosis without current pathological fracture; Z98.42 Cataract extraction status, left eye; Z98.41 Cataract extraction status, right eye; Z96.653 Presence of artificial knee joint, bilateral; Z87.891 Personal history of nicotine dependence
CPT/HCPCS: 36415; 51701; 71045; 72170; 80048; 81001; 85025; 85055; 87086; 96361; 96365; 99284; J0696; J7120